=== PATIENT | female | born 1975 | race Caucasian/White ===

== ENCOUNTER 2016-05-08 22:34 | Emergency (ER) | payer MEDICARE, MEDICAID ==
[~2016-05-08] VITALS: Ht 160 cm; Wt 65.0 kg
[~2016-05-08 22:34] MED LIST: ALBUINHPP INH; IPRA3AMP HHN; PRD10T PO; PRE20 PO
[2016-05-08 22:45] VITALS: BP 128/76; PULSE 88; RESP 14; O2SAT 98
--- NOTE | 2016-05-08 22:57 | ED.REPORT ---
HPI-Psychiatric Illness Date of Service May 08, 2016 ED Provider: Milton Amaya MD A 40 year old female with a history of anxiety, bipolar disorder, PTSD, kidney stones, and COPD presents to the ED via EMS with a self-inflicted left wrist laceration onset just prior to arrival, while intoxicated on alcohol. Per the police, the patient cut her wrist with a razor blade and stated she "wanted to " after losing her job unexpectedly today and fighting with her boyfriend. EMS found the patient with a BP of 132/90 and a pulse of 110. The patient currently denies suicidal ideation or other symptoms. She reports instantly regretting her self-harm and seeking help. The patient denies a history of suicide attempts. Nursing Notes Stated Complaint: LEFT WRIST LACERATION Nursing Notes Reviewed: Yes Allergies: Coded Allergies: naproxen sodium (Verified Allergy, Severe, can't breathe, 05/08/16) Scheduled Albuterol Sulfate/Ipratropium (Duoneb 2.5-0.5MG/3ML Soln) 3 Ml Nebu 3 ML HHN Q6- 12HP Albuterol-Expunged Drug, Do Not Renew! (Albuterol-Expunged Drug, Do Not Renew!) 90 Mcg Puff 2 PUFF INH Q4H Prednisone (PredniSONE) 20 Mg Tablet 20 MG PO TID Miscellaneous Medications PredniSONE-Expunged Drug, Do Not Renew! (PredniSONE-Expunged Drug, Do Not Renew! ) 10 Mg Tab 20 MG PO General Time Seen by MD: 22:55 Chief Complaint Suicidal ideation, Other (Self-inflicted Wrist Wound) Hx Obtained From: Patient, Police Arrived By: Ambulance Onset Occurred: Just prior to arrival Context of Onset: Intoxicated, alcohol, Problem at work Symptom Duration: Since onset Location: : Arm left Quality: Painful Severity: Current: Moderate Severity: Maximum: Moderate Associated with: Reports: Depression, Denies: Fever Pertinent Negative: Relieved by nothing Related History: Reports: Anxiety, Bipolar disorder, Denies: Prior suicide attempt(s) Recent Healthcare: No recent doctor visit Similar Sx Previous: No Risk-Psychiatric Illness Suicide Risk Stratification RF Statements: Risk factors reviewed Past Medical History Past Medical History Kidney stones Anxiety Bipolar disorder COPD PTSD Past Surgical History Chest tube for pneumothorax 1995 Lithotripsy Appendectomy Smoking History Current Every Day Smoker Social History Drug Use: Denies drug use Other Social History: Good social support, , Local resident Ambulatory Status Independent Review of Systems Review of Systems Note: + Self-inflicted left wrist laceration Constitutional: Denies: Fever Respiratory: Denies: Non-productive cough, Shortness of breath GI: Denies: Diarrhea, Vomiting Psychiatric: Denies: Suicidal ideation Complete sys rev & neg: except as marked. Physical Exam Initial Vital Signs Vital Signs (First) Date Time Temp Pulse Resp B/P Pulse Ox O2 Delivery O2 Flow Rate FiO2 05/08/16 22:45 36.8 88 14 128/76 98 Room Air Initial VS: Reviewed Head / Eyes: Atraumatic, Normocephalic ENT: Conjunctiva normal, No scleral icterus Neck: Supple, Full range of motion Respiratory: Breath sounds normal, Clear to auscultation, No respiratory distress Cardiovascular: Regular rate & rhythm, Heart sounds normal Skin: Warm, Dry, No cyanosis General/Constitutional: Awake, Alert Behavior: Positive: Appears intoxicated Psychiatric: Not suicidal Intoxicated Wrist / Hand: Neurologic intact, Vascular intact, Tendon function NL Trauma / Burn / Environmental: Positive: Laceration (Anterior aspect of left wrist, down to tendon sheaths, flexor carpi visible on ulnar side) Interpretation & Diagnostics URINE TEST: Negative URINE DRUG SCREEN: + Tricyclic Antidepressants Otherwise Negative Lab Results Interpretation Result Diagram: 05/08/167 05/08/16 2317 Test 05/08/16 23:17 White Blood Count 6.0th/mm3 (3.8-10.1) Red Blood Count 4.31mil/mm3 (3.90-5.20) Hemoglobin 14.6g/dL (12.0-15.6) Hematocrit 43.1% (35.0-46.0) Mean Corpuscular Volume 100.0fL (81-100) Mean Corpuscular Hemoglobin 33.9pg (27.0-35.0) Mean Corpuscular Hemoglobin Concent 33.9% (32.0-37.0) Red Cell Distribution Width 13.2% (12.3-15.4) Platelet Count 291bil/L (150-400) Neutrophils (%) (Auto) 62.7% (40-74) Lymphocytes (%) (Auto) 31.3% (14-46) Monocytes (%) (Auto) 4.5% (4-12) Eosinophils (%) (Auto) 0.8% (0-5) Basophils (%) (Auto) 0.5% (0-3) Band Neutrophils % 0% (1-5) Sodium Level 148mEq/L (134-144) Potassium Level 3.8mEq/L (3.5-5.2) Chloride Level 111mEq/L (97-108) Carbon Dioxide Level 21mmol/L (18-29) Blood Urea Nitrogen 4mg/dL (6-20) Creatinine 0.44mg/dL (0.57-1.00) Estimat Glomerular Filtration Rate 229mL/min (>59) Glucose Level 122mg/dL (60-99) Calcium Level 8.7mg/dL (8.5-10.1) Total Bilirubin 0.2mg/dL (0.0-1.2) Aspartate Amino Transf (AST/SGOT) 13U/L (0-50) Alanine Aminotransferase (ALT/SGPT) 9U/L (0-32) Alkaline Phosphatase 60U/L (25-150) Total Protein 7.1g/dL (6.4-8.4) Albumin 4.7g/dL (3.4-5.0) Thyroid Stimulating Hormone (TSH) 0.806uIU/mL (0.450-4.500) Hold Perez Top Tube Received (Received) Alcohols 287mg/dL (0-10) Procedures Laceration Management Time: 00:59 Procedure Performed by: ED physician Consent / Setup / Site Prep: Consent from patient, Time-out performed, Hand hygiene observed, Stand sterile technique Location of Wound: Anterior aspect of left wrist Wound Length: 5 cm Local Anesthesia: Lidocaine 1% Wound Preparation: Hibiclens - Chlorhexidine, Normal saline Debridement: None Irrigation: Copious Repair Skin: ___ O (4), Nylon # Sutures - Skin: 10 Closure Layers: 1 Suture Technique: Mattress (Vertical) Post-Procedure / Complications: Antibiotic oint applied, Dressing applied, No complications, Condition improved, Tolerated procedure well, Patient stable Re-Eval/Medical Decision Med Decision/Clinical Course 5-year-old with self-inflicted wound on her wrists and mouth impulsive moment of despondency while intoxicated. She is less intoxicated and denies any suicidality at this point. She was immediately regretful about having cut herself. Her wound is fairly deep and reaches the flexor tendon on the ulnar side, but does not apparently violated. She has full range of motion including against resistance. There was prepped and draped in usual fashion repaired with 4-0 nylon vertical mattress sutures. The wound was dressed and the arm placed in a thumb spica splint to prevent wrist flexure and movement. Directed to return here in ten days for suture removal. Follow up with PCP. Prompt return if any further feelings of self-harm Source of Hx: Old records Re-Evaluation/Progress #1: Time of Eval: 00:58 Patient Status: Condition improved Re-Evaluation/Progress Note: Laceration repair performed. Re-Evaluation/Progress #2: Time of Eval: 02:30 Patient Status: Condition improved Re-Evaluation/Progress Note: Patient rechecked. She wishes to be discharged and her was contacted. Discussed with patient lab results, diagnosis, and plan for discharge. Follow-up and return to the ER instructions given. Patient agrees with plan for care and all questions were addressed. Counseled Regarding: Diagnosis, Lab results, Need for follow-up, When/why to return to ED Discharge & Departure Shift Change Sign-Out Response to Therapy: Improved Impression: Primary Impression: Depression Depression Type: reactive depression Qualified Code: F32.9 - Major depressive disorder, single episode, unspecified Additional Impressions: Laceration of wrist, left, with tendon involvement Encounter type: initial encounter Qualified Code: S61.512A - Laceration without foreign body of left wrist, initial encounter Alcohol intoxication Suicidal ideation Disposition: Home Discharge Condition All VS Reviewed: Yes Condition: Improved Patient Instructions: Acute Wound Care (ED), Alcohol Intoxication (ED), Major Depression (GEN) Additional Instructions: The sutures need removal on day ten. Return here for suture removal. Follow-up with your doctor in the office. You have promised to remain safe and not to injure herself. If you feel that you cannot keep that promise, return here immediately before doing anything to hurt your self. Do not drink alcohol during times of stress. Wear the splint full-time except to wash. Apply bacitracin and change the inner portion of the bandage dressing three times daily to prevent crusting and scabbing. Return for any immediate problems with bleeding or other new symptoms of concern Referrals: NOPCP (PCP) [facility] Michael Attestation Portions of this note were transcribed by Cheryl Frances. I, Dr. Amaya, personally performed the history, physical exam, and medical decision-making; I reviewed and confirmed the accuracy of the information in the transcribed note. Signed by: Michael Donaldson, 05/09/2016, 03:40 copies to: [facility] Milton Amaya MD May 08, 2016 22:57 CHERYL FRANCES May 08, 2016 23:12
[2016-05-08 23:24] LABS: BASOPHILS % (AUTO) 0.5 % (0-3); EOSINOPHILS % (AUTO) 0.8 % (0-5); MONOCYTES % (AUTO) 4.5 % (4-12); Mean Corpuscular Hemoglobin 33.9 pg (27.0-35.0); NEUTROPHILS % (AUTO) 62.7 % (40-74); Platelet Count 291 bil/L (150-400)
[2016-05-09] MEDS ORDERED: Ketorolac 30 mg/mL 2 mL Inj IM ONE (00:10)
[2016-05-09 03:03] VITALS: BP 118/64; PULSE 70; RESP 14; O2SAT 96
== END 2016-05-09 03:05 | disposition home or self-care (01) ==
LOC: EDUNIT# 22:34 → EDBD 22:34 → SED 22:34
DX: S61.512A Laceration without foreign body of left wrist, initial encounter (principal); X78.8XXA Intentional self-harm by other sharp object, initial encounter; Y93.89 Activity, other specified; Y92.89 Other specified places as the place of occurrence of the external cause; Y99.8 Other external cause status; F32.9 Major depressive disorder, single episode, unspecified; F10.129 Alcohol abuse with intoxication, unspecified; J44.9 Chronic obstructive pulmonary disease, unspecified; F31.9 Bipolar disorder, unspecified; F17.200 Nicotine dependence, unspecified, uncomplicated; Z88.8 Allergy status to other drugs, medicaments and biological substances
CPT/HCPCS: 12002; 36415; 80053; 81002; 81025; 82075; 84443; 85025; 99283; G0480